=== PATIENT | female | born 1940 | race Caucasian/White ===

== ENCOUNTER 2016-09-01 15:55 | Observation (INO) | payer OTHER ==
[~2016-09-01] VITALS: Ht 152.4 cm; Wt 56.4 kg
[~2016-09-01 15:55] MED LIST: ASCORBIC ACID500 M3 PO; BENADRYL25 MG PO; CALTRATE 6001 TABLE2 PO; CELECOXIB200 MG PO; COUMADIN,JANTOVE1 MG PO; DOK PLUS TABLE1 EACH PO; FOLIC ACID1 MG PO; Feosol PO; HYDROCODON-ACE1 EAC7 PO; IRON325 M1 PO; LUTEIN6 MG PO; LYCOPENE PO; MARTINIC1 EACH PO; METAMUCIL C1 CAPSULE PO; SENOKOT S,PE1 TABLET PO; THERAGRAN1 TABLET PO; TRIGOSAMINE PO; TUMERIC PO; TYLENOL REGULA325 MG PO; Vicodin,Norco 5/325 PO; XARELTO10 MG PO
[2016-09-01 17:03] LABS: BASOPHIL COUNT 0.1 K/uL (0-0.1); EOSINOPHIL (%) 1.4 % (0-5); EOSINOPHIL COUNT 0.1 K/uL (0-0.3); HEMATOCRIT 38.6 % (36.0-46.0); IMMATURE GRANULOCYTE (%) 0.2 % (0.0-0.7); INSTRUMENT ABS NEUTROPHIL CT 6.4 K/uL; MCH 29.4 PG (29.0-34.0); MCHC 33.7 G/DL (30.0-36.0); MCV 87.3 FL (83-99); MEAN PLAT.VOLUME 9.1 uM^3 (9.5-12.4); NEUTROPHIL (%) 67.3 % (45-76); NEUTROPHIL COUNT 6.4 K/uL (1.8-6.4); PLATELET COUNT 217 K/uL (156-360); RBC DIS.WIDTH-CV 13.3 % (11.8-14.6); RBC DIS.WIDTH-SD 42.6 % (39-53); RED BLOOD COUNT 4.42 M/uL (3.80-5.20); WHITE BLOOD COUNT 9.5 K/uL (4.1-10.2)
[2016-09-01 17:13] LABS: PROTHROMBIN TIME 10.6 (9.2-11.2); PTT 26.4 (25-32)
[2016-09-01 17:16] LABS: CHLORIDE 102 mEq/L (99-109); POTASSIUM 4.1 mEq/L (3.7-5.4); SODIUM 137 mEq/L (136-147)
[2016-09-01 17:18] LABS: GLUCOSE 87 mg/dL (70-99)
[2016-09-01 17:19] LABS: ANION GAP 8 MEQ/L (2-14)
[2016-09-01 17:20] LABS: TOTAL BILIRUBIN 0.9 mg/dL (0.0-1.0)
[2016-09-01 17:21] LABS: ALKALINE PHOSPHATASE 62 IU/L (3-129)
[2016-09-01 17:22] LABS: GFR ESTIMATE (CALCULATED) > 59 mL/min/
[2016-09-01 17:23] LABS: UREA NITROGEN (BUN) 20 mg/dL (9-23)
[2016-09-01 17:25] LABS: LIPASE 53 U/L (1.0-51.0)
[2016-09-01 18:41] LABS: ADD MIUA? YES; BILIRUBIN NEGATIVE; BLOOD NEGATIVE; COLOR YELLOW ((YELLOW)); GLUCOSE (STRIP) NEGATIVE; KETONES NEGATIVE; LEUKOCYTES TRACE; NITRITE NEGATIVE; PROTEIN (STRIP) NEGATIVE; UROBILINOGEN 0.2 MG/DL (0.2-1.0)
[2016-09-01 19:19] LABS: BACTERIA NONE SEEN /HPF; EPITHELIAL CELLS NONE SEEN /HPF; MUCUS TRACE /LPF; RED BLOOD CELLS 0-5 /HPF (0-5); UCUL ADDED? NO; WHITE BLOOD CELLS 0-5 /HPF (0-5)
[2016-09-01] MEDS ORDERED: CENTRUM SILVER1 EAC3 PO (19:59)
[2016-09-01] MEDS ORDERED: TUMERIC PO (20:00)
[2016-09-01] MEDS ORDERED: ARICEPT5 MG PO (20:02)
[2016-09-01 21:51] LABS: HEMATOCRIT 37.2 % (36.0-46.0); MCH 28.7 PG (29.0-34.0); MCHC 33.1 G/DL (30.0-36.0); MCV 86.9 FL (83-99); MEAN PLAT.VOLUME 9.2 uM^3 (9.5-12.4); PLATELET COUNT 212 K/uL (156-360); RBC DIS.WIDTH-CV 13.4 % (11.8-14.6); RBC DIS.WIDTH-SD 41.7 % (39-53); RED BLOOD COUNT 4.28 M/uL (3.80-5.20); WHITE BLOOD COUNT 9.8 K/uL (4.1-10.2)
[2016-09-01 22:38] VITALS: BP 148/74
[2016-09-02 00:39] LABS: HEMATOCRIT 37.3 % (36.0-46.0); MCV 87.1 FL (83-99)
[2016-09-02 03:50] VITALS: BP 161/86
[2016-09-02 08:03] LABS: HEMATOCRIT 36.6 % (36.0-46.0); MCV 88.2 FL (83-99)
[2016-09-02 08:24] LABS: ANION GAP 8 MEQ/L (2-14); CHLORIDE 105 MEQ/L (99-109); GFR ESTIMATE (CALCULATED) > 59 mL/min/; GLUCOSE 89 mg/dL (70-99); POTASSIUM 3.9 MEQ/L (3.7-5.4); SAMPLE HEMOLYSIS CHECK 0; SAMPLE ICTERIC CHECK 0; SAMPLE LIPEMIA CHECK 0; SODIUM 139 MEQ/L (136-147); UREA NITROGEN (BUN) 14 mg/dL (9-23)
[2016-09-02 08:53] VITALS: BP 157/76
== END 2016-09-02 12:00 | disposition home or self-care (01) ==
LOC: EME 15:55 → EDOF 21:16 → 5WEST 22:19
PROVIDERS: Hospitalist; Physician Assistant
DX: K92.2 Gastrointestinal hemorrhage, unspecified (principal); K57.30 Diverticulosis of large intestine without perforation or abscess without bleeding; R10.9 Unspecified abdominal pain; R63.4 Abnormal weight loss; D64.9 Anemia, unspecified; M19.90 Unspecified osteoarthritis, unspecified site; F03.90 Unspecified dementia, unspecified severity, without behavioral disturbance, psychotic disturbance, mood disturbance, and anxiety; Z96.643 Presence of artificial hip joint, bilateral
CPT/HCPCS: 74177; 80048; 80053; 81003; 83690; 85014; 85018; 85025; 85027; 85610; 85730; 86850; 86900; 86901; 87493; 99281; 99285; C9113; G0378; J3480

== ENCOUNTER 2017-11-23 19:26 | Inpatient (IN) | payer OTHER ==
[~2017-11-23] VITALS: Ht 172.7 cm; Wt 56.7 kg
[~2017-11-23 19:26] MED LIST changes: +ARICEPT10 MG PO; +DAILY VALUE1 EACH PO
[2017-11-23 20:19] LABS: BASOPHIL (%) 0.5 % (0-1); EOSINOPHIL (%) 0.7 % (0-5); HEMATOCRIT 36.3 % (36.0-46.0); HEMOGLOBIN 12.4 G/DL (11.9-15.5); IMMATURE GRANULOCYTE (%) 0.3 % (0.0-0.7); LYMPHOCYTE COUNT 1.1 K/uL (1.0-2.8); MCHC 34.2 G/DL (30.0-36.0); MCV 87.7 FL (83-99); MONOCYTE (%) 14.1 % (3-12); MONOCYTE COUNT 0.8 K/uL (0-0.8); NEUTROPHIL (%) 66.4 % (45-76); NEUTROPHIL COUNT 3.9 K/uL (1.8-6.4); PLATELET COUNT 158 K/uL (156-360); RBC DIS.WIDTH-CV 12.6 % (11.8-14.6); RBC DIS.WIDTH-SD 40.3 % (39-53); RED BLOOD COUNT 4.14 M/uL (3.80-5.20); WHITE BLOOD COUNT 5.9 K/uL (4.1-10.2)
[2017-11-23 20:26] LABS: ALBUMIN 3.3 g/dL (3.2-4.8)
[2017-11-23 20:27] LABS: CHLORIDE 100 mEq/L (99-109); POTASSIUM 3.7 mEq/L (3.7-5.4); SODIUM 138 mEq/L (136-147)
[2017-11-23 20:28] LABS: APPEARANCE CLOUDY ((CLEAR)); BILIRUBIN NEGATIVE; BLOOD MODERATE; COLOR AMBER ((YELLOW)); GLUCOSE (STRIP) NEGATIVE; KETONES 5; LEUKOCYTES MODERATE; NITRITE NEGATIVE; PROTEIN (STRIP) 100; SPECIFIC GRAVITY 1.016 (1.000-1.030)
[2017-11-23 20:29] LABS: GLUCOSE 175 mg/dL (70-99); TOTAL PROTEIN 6.1 g/dL (6.4-8.3)
[2017-11-23 20:31] LABS: TOTAL BILIRUBIN 0.5 mg/dL (0.0-1.0)
[2017-11-23 20:32] LABS: ALKALINE PHOSPHATASE 86 IU/L (3-129)
[2017-11-23 20:33] LABS: CREATININE 0.9 mg/dL (0.6-1.3); GFR ESTIMATE (CALCULATED) > 59 mL/min/
[2017-11-23 20:34] LABS: AST (GOT) 23 IU/L (2-34); UREA NITROGEN (BUN) 17 mg/dL (9-23)
[2017-11-23 20:35] LABS: ALT (GPT) 14 IU/L (3-49)
[2017-11-23 20:49] LABS: EPITHELIAL CELLS RARE /HPF; MUCUS TRACE /LPF; UCUL ADDED? YES
[2017-11-23 20:53] LABS: BACTERIA 3+ /HPF; WHITE BLOOD CELLS TNTC /HPF (0-5)
[2017-11-23] MEDS ORDERED: ERGOCALCIF50000 UNIT PO (20:55)
[2017-11-23] MEDS ORDERED: AMITRIPTYLINE H25 MG PO (20:55)
[2017-11-23] MEDS ORDERED: SEROQUEL12.5 MG PO (20:56)
[2017-11-23] MEDS ORDERED: DULCOLAX10 MG PR (20:57)
[2017-11-23] MEDS ORDERED: TYLENOL REGULA325 MG PO (20:57)
[2017-11-23] MEDS ORDERED: SINEMET 25-1001 EACH PO (20:57)
[2017-11-23] MEDS ORDERED: PHILLIPS'400 MG/5 M PO (20:58)
[2017-11-23 23:55] VITALS: BP 147/76
[2017-11-24] VITALS (7 sets, daily range): BP systolic 135–173; BP diastolic 65–90
[2017-11-25 04:35] VITALS: BP 165/85
[2017-11-25 07:07] LABS: HEMATOCRIT 34.8 % (36.0-46.0); HEMOGLOBIN 11.8 G/DL (11.9-15.5); MCH 29.4 PG (29.0-34.0); MCHC 33.9 G/DL (30.0-36.0); MCV 86.8 FL (83-99); PLATELET COUNT 158 K/uL (156-360); RBC DIS.WIDTH-CV 12.3 % (11.8-14.6); RBC DIS.WIDTH-SD 39.5 % (39-53); RED BLOOD COUNT 4.01 M/uL (3.80-5.20); WHITE BLOOD COUNT 6.5 K/uL (4.1-10.2)
[2017-11-25 07:38] LABS: CHLORIDE 102 MEQ/L (99-109); CREATININE 0.8 MG/DL (0.6-1.3); GFR ESTIMATE (CALCULATED) > 59 mL/min/; GLUCOSE 105 mg/dL (70-99); POTASSIUM 3.5 MEQ/L (3.7-5.4); SODIUM 139 MEQ/L (136-147); UREA NITROGEN (BUN) 7 mg/dL (9-23)
[2017-11-25 09:08] VITALS: BP 143/76
[2017-11-25 13:30] VITALS: BP 142/74
[2017-11-25 15:30] VITALS: BP 138/72
[2017-11-25 19:51] VITALS: BP 158/81
[2017-11-25 23:43] VITALS: BP 134/70
[2017-11-26 07:04] LABS: HEMOGLOBIN 11.1 G/DL (11.9-15.5); MCHC 33.6 G/DL (30.0-36.0); MCV 86.2 FL (83-99); PLATELET COUNT 162 K/uL (156-360); RBC DIS.WIDTH-CV 12.4 % (11.8-14.6); RED BLOOD COUNT 3.83 M/uL (3.80-5.20); WHITE BLOOD COUNT 6.4 K/uL (4.1-10.2)
[2017-11-26 07:27] LABS: CHLORIDE 104 MEQ/L (99-109); CREATININE 0.7 MG/DL (0.6-1.3); GFR ESTIMATE (CALCULATED) > 59 mL/min/; GLUCOSE 98 mg/dL (70-99); POTASSIUM 3.6 MEQ/L (3.7-5.4); SODIUM 141 MEQ/L (136-147); UREA NITROGEN (BUN) 12 mg/dL (9-23)
[2017-11-26 07:47] VITALS: BP 164/79
[2017-11-26 12:11] VITALS: BP 164/80
[2017-11-26] MEDS ORDERED: CEFTRIAXONE1 G1 IV (14:01)
[2017-11-26 16:12] VITALS: BP 162/85
== END 2017-11-26 19:33 | DRG 690 ==
LOC: EME → EDBD 19:26 → 3EAST 21:50 → EDOF 21:50 → CANRESERV 22:03 → ENRESERV 22:03 → 3EAST 23:33
PROVIDERS: Family Medicine
DX: N39.0 Urinary tract infection, site not specified (principal); F32.9 Major depressive disorder, single episode, unspecified; Z90.710 Acquired absence of both cervix and uterus; G20 Parkinson's disease; F03.90 Unspecified dementia, unspecified severity, without behavioral disturbance, psychotic disturbance, mood disturbance, and anxiety; B96.20 Unspecified Escherichia coli [E. coli] as the cause of diseases classified elsewhere; M19.90 Unspecified osteoarthritis, unspecified site; Z96.643 Presence of artificial hip joint, bilateral; I83.90 Asymptomatic varicose veins of unspecified lower extremity; Z98.82 Breast implant status; R26.9 Unspecified abnormalities of gait and mobility; R41.82 Altered mental status, unspecified; F41.9 Anxiety disorder, unspecified; B96.89 Other specified bacterial agents as the cause of diseases classified elsewhere
CPT/HCPCS: 71045; 80048; 80053; 81003; 83605; 85025; 85027; 87040; 87077; 87086 GA; 87186; 87801; 99281; 99285; J0696; J3370; J7030